=== PATIENT | male | born 1950 | race Caucasian/White ===

== ENCOUNTER → 2020-01-11 | Outpatient (CLI) | payer MEDICARE | END | disposition home or self-care (01) | LOC: CVU 13:20 | PROVIDERS: ATTEND Internal Medicine Cardiovascular Disease | DX: I34.0 Nonrheumatic mitral (valve) insufficiency (principal); E11.9 Type 2 diabetes mellitus without complications; Z87.891 Personal history of nicotine dependence | CPT/HCPCS: 93306 ==

== ENCOUNTER 2020-02-20 09:18 | Day surgery (SDC) | payer MEDICARE ==
[~2020-02-20] VITALS: Ht 180.3 cm; Wt 118.2 kg
[2020-02-20 10:03] VITALS: BP 113/80
[2020-02-20] MEDS ORDERED: GLIP10TA13 PO (10:11)
[2020-02-20] MEDS ORDERED: B CO1TAB14 PO (10:11)
[2020-02-20] MEDS ORDERED: PRAV40TA2 PO (10:11)
[2020-02-20] MEDS ORDERED: METF500T17 PO (10:11)
[2020-02-20] MEDS ORDERED: METO-93 PO (10:11)
[2020-02-20] MEDS ORDERED: AMLO-150 PO (10:11)
[2020-02-20] MEDS ORDERED: APIX5TAB PO (10:11)
[2020-02-20] MEDS ORDERED: LOSA50TA14 PO (10:11)
[2020-02-20] MEDS ORDERED: MULT-257 PO (10:11)
[2020-02-20] MEDS ORDERED: MECLIZINE PO (10:11)
== END 2020-02-20 14:05 | disposition home or self-care (01) ==
LOC: CACL 09:18
PROVIDERS: ATTEND Internal Medicine Cardiovascular Disease
DX: I48.0 Paroxysmal atrial fibrillation (principal); I10 Essential (primary) hypertension; E11.9 Type 2 diabetes mellitus without complications; J44.9 Chronic obstructive pulmonary disease, unspecified; G47.33 Obstructive sleep apnea (adult) (pediatric); E78.5 Hyperlipidemia, unspecified; Z79.01 Long term (current) use of anticoagulants; Z79.82 Long term (current) use of aspirin; Z79.84 Long term (current) use of oral hypoglycemic drugs; Z79.899 Other long term (current) drug therapy; Z87.891 Personal history of nicotine dependence
CPT/HCPCS: 92960

== ENCOUNTER 2021-02-23 11:57 | Outpatient (CLI) | payer MEDICARE ==
[~2021-02-23 11:57] MED LIST: AMLO-150 PO; APIX5TAB PO; B CO1TAB14 PO; GLIP10TA13 PO; LOSA50TA14 PO; MECLIZINE PO; METF500T17 PO; METO-93 PO; MULT-257 PO; PRAV40TA2 PO
== END 2021-02-23 23:59 | disposition home or self-care (01) ==
LOC: CFH 11:57
PROVIDERS: ATTEND Nurse Practitioner Family
DX: Z12.2 Encounter for screening for malignant neoplasm of respiratory organs (principal); R91.8 Other nonspecific abnormal finding of lung field; I70.0 Atherosclerosis of aorta; M51.34 Other intervertebral disc degeneration, thoracic region; N62 Hypertrophy of breast; L72.3 Sebaceous cyst; J43.9 Emphysema, unspecified; Z87.891 Personal history of nicotine dependence
CPT/HCPCS: 71271